=== PATIENT | female | born 1960 | race Caucasian/White ===

== ENCOUNTER 2020-08-08 07:31 | Day surgery (SDC) | payer OTHER | END 2020-08-08 14:55 | disposition home or self-care (01) | LOC: AMB-ENDOS 07:31 | PROVIDERS: ATTEND Colon & Rectal Surgery | DX: K62.89 Other specified diseases of anus and rectum (principal); K64.1 Second degree hemorrhoids; Z20.822 Contact with and (suspected) exposure to COVID-19 ==